=== PATIENT | male | born 1990 | race African-American/Black ===

== ENCOUNTER 2017-04-20 10:33 | Emergency (ER) | payer MEDICAID ==
[2017-04-20 10:43] VITALS: RESP 12; TEMP 97.5
[2017-04-20] MEDS ORDERED: ACETAMINOPHEN 500 MG TAB PO ONE (11:52)
[2017-04-20] MEDS ORDERED: IBUPROFEN 800 MG TAB PO ONE (11:52)
[2017-04-20] MEDS ORDERED: ACETAMINOPHEN 325 MG TAB ONE (11:59)
[2017-04-20] MEDS ORDERED: ACETAMINOPHEN 325 MG TAB PO ONE (12:01)
--- NOTE | 2017-04-20 12:43 | EDPHY ---
H & P Time Seen by Provider: 04/20/17 11:01 HPI/ROS: This patient complains of severe left lumbar pain radiating to his buttock and down the posterior aspect of his left thigh. He describes the nature the pain is sharp in nature and feels stiff muscles in the same region. Current pain is 8/10 peak intensity and worsens with movement. He does remember any acute injury though he has had waxing and waning symptoms of similar intensity for months now at this episode is more severe than prior. He has not taken any medications today but yesterday had mild improvement on ibuprofen. He notes no other exacerbating or alleviating factors. ROS: Constitutional: No fevers. No significant fatigue. No other constitutional symptoms Pulmonary: No shortness of breath. No coughing. Cardiovascular: No lightheadedness GI: No abdominal pain, nausea vomiting or diarrhea. : No hematuria. No testicular pain or swelling. No dysuria. Neuro: No incontinence, numbness tingling or focal weakness. Integumentary: No skin rash Musculoskeletal: No recent trauma. 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 Former heroin use-clean for 6 months. No other drug use. Smoking Status: Current every day smoker Physical Exam: General Appearance: Pleasant black male Alert, no distress. Eyes: Pupils equal and round no pallor or injection. ENT, Mouth: Mucous membranes moist. Respiratory: There are no retractions, lungs are clear to auscultation. Cardiovascular: Regular rate and rhythm. No murmur gallop or rub. Gastrointestinal: Abdomen is soft and nontender, no masses, bowel sounds normal. Back: No midline tenderness. He has left paraspinous lumbar tenderness with tight musculature and tenderness extends to the sciatic notch on the left. He has positive straight leg raise at 10 degrees on the left. He has limited range of motion for flexion due to pain. : No testicular tenderness Neurological: GCS 15 with no focal deficits. He maintains normal light touch sensory exam bilateral lower extremities, weak but symmetric patellar and Achilles DTRs bilaterally in 5/5 strength in great toe dorsiflexion and plantar flexion bilaterally. Skin: Warm and dry, no rashes. Extremities are symmetrical, full range of motion. Psychiatric: Mood and affect are normal. DIFFERENTIAL DIAGNOSIS: After history and physical exam differential diagnosis was considered for sciatica, muscle strain, disc herniation, doubt epidural abscess, doubt pathological fracture Constitutional: Initial Vital Signs Temperature (C) 36.4 C 04/20/17 10:40 Heart Rate 75 04/20/17 10:40 Respiratory Rate 12 04/20/17 10:40 Blood Pressure 159/63 H 04/20/17 10:40 O2 Sat (%) 95 04/20/17 10:40 O2 Delivery Mode Room Air Allergies/Adverse Reactions: No Known Allergies Allergy (Unverified 04/20/17 10:43) Home Medications: Medication Instructions Recorded Buprenorphine HCl/Naloxone HCl 2 each SL DAILY 07/10/15 [Suboxone 8 mg-2 mg SL Film] Lidocaine [Lidoderm] 1 each TP DAILY #20 adh..patch 04/20/17 Methocarbamol [Robaxin 750 mg (*)] 750 - 1,500 mg PO QID PRN #30 tab 04/20/17 MDM/Departure - MDM Diagnostics: Two view lumbar spine x-ray: Normal by my interpretation Medications Given: Discontinued Medications Acetaminophen (Tylenol) 1,000 mg PO EDNOW ONE Stop: 04/20/17 11:53 Last Admin: 04/20/17 12:01 Dose: Not Given Acetaminophen (Tylenol) 975 mg PO EDNOW ONE Stop: 04/20/17 12:02 Last Admin: 04/20/17 12:02 Dose: 975 mg Ibuprofen (Motrin) 800 mg PO EDNOW ONE Stop: 04/20/17 11:53 Last Admin: 04/20/17 12:02 Dose: 800 mg ED Course/Re-evaluation: Patient is treated with ibuprofen Tylenol with partial relief of his symptoms. I counseled regarding sciatic in some detail demonstrated some stretches that may help with his symptoms. Will treat him with Lidoderm patches, methocarbamol, ibuprofen Tylenol. He will follow up with primary care physician. He understands need to return should he develop any significant worsening despite the treatment plan. Answered all his questions prior to discharge home. - Depart Disposition: Home, Routine, Self-Care Clinical Impression: Sciatica Qualifiers: Laterality: left Qualified Code(s): M54.32 - Sciatica, left side Condition: Good Instructions: Sciatica (ED) Additional Instructions: Diagnosis: Left-sided sciatica Plan: Ibuprofen 600 mg per 6 hours regularly for the next week then as needed. Methocarbamol muscle relaxants as needed. Tylenol in addition as needed for pain. Starts daily stretches prior to taking muscle relaxants in the morning. 3-5 minutes each of: "Butterfly stretch," "Sphinx stretch", "pigeon stretch", and hamstring stretch. Avoid lifting more than 5-10 pounds until symptoms improve. Call your primary care physician for a followup appointment in 3-7 days. Go to the emergency department for worsening of your symptoms despite the treatment plan. Prescriptions: Lidocaine [Lidoderm] 1 each TP DAILY #20 adh..patch Methocarbamol [Robaxin 750 mg (*)] 750 - 1,500 mg PO QID PRN #30 tab PRN Reason: Muscle Spasms Referrals: CHRISTINA JOHNSON,. [Clinic] - As per Instructions
[2017-04-20] MEDS ORDERED: TAMSULOSIN HCL 0.4 MG CAP PO ONE (12:50)
[2017-04-20] MEDS ORDERED: NS 1,000 ML IV ONE (12:51)
[2017-04-20 12:53] VITALS: BP 148/65; PULSE 72; O2SAT 97
== END 2017-04-20 12:51 | disposition home or self-care (01) ==
LOC: CED 10:33
DX: M54.32 Sciatica, left side (principal); F17.200 Nicotine dependence, unspecified, uncomplicated
CPT/HCPCS: 72100-PO